=== PATIENT | female | born 1985 | race Caucasian/White ===

== ENCOUNTER 2016-07-11 20:22 | Emergency (ER) | payer BC, OTHER ==
[~2016-07-11] VITALS: Ht 170.2 cm; Wt 67.1 kg
[~2016-07-11 20:22] MED LIST: ETHI1TAB24 PO; FLUO20CA36 PO
[2016-07-11 20:26] VITALS: BP 95/55
[2016-07-11] MEDS ORDERED: ACETAMINOPHEN ES 500 MG TABLET ONE (20:59)
[2016-07-11] MEDS ORDERED: ACETAMINOPHEN 325 MG TABLET PO ONE (21:00)
[2016-07-11] MEDS ORDERED: ONDANSETRON 4 MG TAB.RAPDIS SL ONE (22:00)
[2016-07-12] MEDS ORDERED: ACETAMINOPHEN ES 500 MG TABLET ONE (16:30)
== END 2016-07-11 22:01 | disposition home or self-care (01) ==
LOC: ER 20:25
DX: S09.90XA Unspecified injury of head, initial encounter (principal); F32.9 Major depressive disorder, single episode, unspecified; Z90.89 Acquired absence of other organs; Z90.49 Acquired absence of other specified parts of digestive tract; Z96.642 Presence of left artificial hip joint; W18.09XA Striking against other object with subsequent fall, initial encounter; Y93.89 Activity, other specified; Y92.89 Other specified places as the place of occurrence of the external cause; Y99.8 Other external cause status
CPT/HCPCS: 72220; 84703; 99284; A4606; Z7610